=== PATIENT | male | born 1960 | race Caucasian/White ===

== ENCOUNTER 2016-10-05 07:44 | Emergency (ER) | payer MEDICARE ==
[2016-10-05 07:58] VITALS: RESP 16; TEMP 98.2
--- NOTE | 2016-10-05 08:18 | ED PDOC ---
Arrival/HPI - General Historian: Patient - History of Present Illness Time/Duration: 4-6 hours Symptom Onset: Sudden Symptom Course: Unchanged Quality: Throbbing Severity Level: 8 Activities at Onset: Rest Context: Sitting - General Time Seen by Provider: 10/05/16 07:55 - History of Present Illness Narrative History of Present Illness (Text): 10/05/16 08:14 This is a 56 yr. old male with a past medical history of arthritis who comes to [facility] complaining of left shoulder pain since 5:30 a.m. this morning. The patient reports being asleep when his arm begin hurting so badly that it woke him from his sleep. He reports the pain starting at the AC joint and moving down to the left elbow. The patient denies any alleviating or modifying factors. The patient does report some nausea that started around the same time as the arm pain. The patient denies any fevers, chills, vomiting, shortness of breath, headache, weakness, or any other complaints. (Jonathan Nettles) Past Medical History - Provider Review Nursing Documentation Reviewed: Yes - Travel History Have you recently traveled outside [place] w/in the past 3 mons?: No - Cardiac Hx Cardiac Disorders: No - Pulmonary Hx Respiratory Disorders: No - Neurological Hx Neurological Disorder: No - HEENT Hx HEENT Disorder: No - Renal Hx Renal Disorder: No - Endocrine/Metabolic Hx Endocrine Disorders: No - Hematological/Oncological Hx Blood Disorders: No - Integumentary Hx Dermatological Disorder: No - Musculoskeletal/Rheumatological Hx Musculoskeletal Disorders: Yes Hx Rheumatoid Arthritis: Yes - Gastrointestinal Hx Gastrointestinal Disorders: No - Genitourinary/Gynecological Hx Genitourinary Disorders: No - Psychiatric Hx Psychophysiologic Disorder: No Hx Substance Use: No Family/Social History - Physician Review Nursing Documentation Reviewed: Yes Family/Social History: No Known Family HX Smoking Status: Never Smoked Hx Alcohol Use: Yes Frequency of alcohol use: Socially Hx Substance Use: No Allergies/Home Meds Allergies/Adverse Reactions: Allergies No Known Allergies Allergy (Verified 10/05/16 07:57) Home Medications: Home Meds Medication Instructions Recorded Confirmed Unobtainable 10/05/16 10/05/16 Review of Systems - Physician Review All systems were reviewed & negative as marked: Yes - Review of Systems Constitutional: Normal. absent: Fatigue, Fevers, Night Sweats Eyes: Normal. absent: Vision Changes, Eye Pain ENT: Normal. absent: TMJ Pain, Rhinorrhea, Sinus Congestion Respiratory: Normal. absent: SOB, Sputum, Wheezing Cardiovascular: Normal. absent: Chest Pain, Calf Pain Gastrointestinal: Nausea. absent: Normal, Abdominal Pain, Constipation, Diarrhea, Vomiting Genitourinary Male: Normal. absent: Frequency, Hematuria Musculoskeletal: Normal. absent: Back Pain Skin: Normal. absent: Skin Lesions, Abscess Neurological: Normal, Headache. absent: Dizziness Endocrine: Normal. absent: Polyuria, Polydipsia Psychiatric: Normal Physical Exam Vital Signs Reviewed: Yes Temperature: Afebrile Blood Pressure: Normal Pulse: Regular Respiratory Rate: Normal Appearance: Positive for: Well-Appearing, Non-Toxic, Comfortable Pain Distress: None Mental Status: Positive for: Alert and Oriented X 3 - Systems Exam Head: Present: Atraumatic, Normocephalic Pupils: Present: PERRL. No: Sluggish Extroacular Muscles: Present: EOMI. No: Entrapment Conjunctiva: Present: Normal. No: Injected Mouth: Present: Moist Mucous Membranes, Normal Tounge. No: Drooling Neck: Present: Normal Range of Motion. No: JVD, Lymphadenopathy Respiratory/Chest: Present: Clear to Auscultation, Good Air Exchange. No: Respiratory Distress, Accessory Muscle Use Cardiovascular: Present: Regular Rate and Rhythm, Normal S1, S2. No: Murmurs, Tachycardic, Bradycardic Abdomen: Present: Normal Bowel Sounds. No: Tenderness, Distention, Rebound, Guarding Upper Extremity: Present: Other. No: Normal Inspection (Reduced flexion, abduction and extension noted in left arm.), Cyanosis, Edema Lower Extremity: Present: Normal Inspection. No: Edema Neurological: Present: CN II-XII Intact, Speech Normal Skin: Present: Dry, Normal Color. No: Warm, Rashes Psychiatric: Present: Alert, Oriented x 3, Normal Insight Vital Signs Temp Pulse Resp BP Pulse Ox 10/05/16 07:57 98.2 F 78 16 128/69 96 Medical Decision Making - Lab Interpretations I have reviewed the lab results: Yes - RAD Interpretation Legal Officer: Radiologist - EKG Interpretation Interpreted by ED Physician: Yes Type: 12 lead EKG ED Course and Treatment: 10/05/16 08:42 Patient seen and examined with resident. Came up with treatment and disposition plan with resident. (Ameya Pelletier) 10/05/16 08:22 This is a 56 yr. old male with a past medical history of arthritis who comes to [facility] complaining of left arm pain that began this morning around 5:30 a.m. I ordered an X-ray of the left shoulder. The patient was given Zofran for the nausea. The patient will be re-evaluated once lab results return 10/05/16 08:31 10/05/16 09:53 Patient reports pain subsiding in his left arm after the Toradol injection. Patient also reports nausea subsiding after the Zofran was given. 10/05/16 11:55 Patient to be discharged. Instructed patient to follow up with a [facility] and Orthopedist within one week. Patient states he understands instructions and plans on contacting respective physicians today. (Jonathan Nettles) - Lab Interpretations Lab Results: 10/05/16 10:03 10/05/16 09:34 Lab Results 10/05/16 10:03: WBC 8.5, RBC 4.39, Hgb 13.2 L, Hct 37.9 L, MCV 86.3, MCH 30.1, MCHC 34.8, RDW 12.4, Plt Count 214, MPV 9.2, Gran % 69.3 H, Lymph % (Auto) 22.1 , [place] % (Auto) 5.2, Eos % (Auto) 2.8, Baso % (Auto) 0.6, Gran # 5.89, Lymph # 1.9, [place] # 0.4, Eos # 0.2, Baso # 0.05 10/05/16 09:34: Sodium 139, Potassium 3.9, Chloride 104, Carbon Dioxide 26, Anion Gap 13, BUN 16, Creatinine 0.6, Est GFR ( Amer) > 60, Est GFR (Non- Af Amer) > 60, Random Glucose 91, Calcium 8.6, Total Bilirubin 0.6, AST 28, ALT 40, Alkaline Phosphatase 65, Total Protein 7.5, Albumin 4.0, Globulin 3.5, Albumin/Globulin Ratio 1.1 10/05/16 09:00: Lactate Dehydrogenase 360, Total Creatine Kinase 77, Troponin I < 0.01 - RAD Interpretation Radiology Orders: 10/05/16 08:26 SHOULDER LEFT [RAD] Stat - Medication Orders Current Medication Orders: Discontinued Medications Ketorolac Tromethamine (Toradol) 60 mg IM STAT STA Stop: 10/05/16 09:28 Last Admin: 10/05/16 09:33 Dose: Ketorolac Tromethamine (Toradol) Confirm Administered Dose 60 mg .ROUTE .STK- MED ONE Stop: 10/05/16 09:32 Last Admin: 10/05/16 09:33 Dose: 60 mg Ondansetron HCl (Zofran Tab) 4 mg PO STAT STA Stop: 10/05/16 08:27 Last Admin: 10/05/16 08:47 Dose: 4 mg Disposition/Present on Arrival - Present on Arrival Any Indicators Present on Arrival: No History of DVT/PE: No History of Uncontrolled Diabetes: No Urinary Catheter: No History of Decub. Ulcer: No History Surgical Site Infection Following: None - Disposition Have Diagnosis and Disposition been Completed?: Yes Disposition Time: 11:42 Patient Plan: Discharge - Disposition Diagnosis: Shoulder pain Disposition: HOME/ ROUTINE Patient Problems: Current Active Problems Problem Status Onset Shoulder pain Acute Condition: GOOD Additional Instructions: Patient instructed to f/u with PMD within one week. Patient given referrals for Orthopedics and Cardiology. Patient instructed to f/u with Orthopedics within one week. Patient instructed to f/u with Cardiology within one week. Patient should return to [facility] for any new symptoms or current symptoms worsen. Referrals: Jesus Lebron MD [Staff Provider] - Follow up with primary Winston Montes MD [Staff Provider] - Follow up with primary
[2016-10-05 09:37] LABS: TROPONIN I < 0.01 ng/mL
[2016-10-05 10:31] LABS: ALB/GLOB RATIO 1.1 (1.1-1.8); ALKALINE PHOSPHATASE 65 U/L (38-133); ALT/SGPT 40 U/L (7-56); AST/SGOT 28 U/L (15-59); BILIRUBIN,TOTAL 0.6 mg/dL (0.2-1.3); BLOOD UREA NITROGEN 16 mg/dL (7-21); CALCIUM 8.6 mg/dL (8.4-10.5); CARBON DIOXIDE 26 mmol/L (21-33); CHLORIDE 104 mmol/L (98-107); GFR AFRICAN-AMERICAN > 60; GLUCOSE,RANDOM 91 mg/dL (70-110); POTASSIUM 3.9 mmol/L (3.6-5.0); SODIUM 139 mmol/L (132-148); TOTAL PROTEIN 7.5 g/dL (5.8-8.3)
[2016-10-05 10:41] LABS: BASO # 0.05 K/mm3 (0.0-2.0); BASO % 0.6 % (0.0-3.0); EOS # 0.2 (0.0-0.7); EOS % 2.8 % (1.5-5.0); GRAN # 5.89 (1.4-6.5); GRAN % 69.3 % (50.0-68.0); HEMATOCRIT 37.9 % (42.0-52.0); LYMPH # 1.9 (1.2-3.4); LYMPH % 22.1 % (22.0-35.0); MEAN CELL VOLUME 86.3 fl (80.0-105.0); MEAN CORPUSCULAR HEMOGLOBIN 30.1 pg (25.0-35.0); MEAN CORPUSCULAR HGB CONC 34.8 g/dl (31.0-37.0); MEAN PLATELET VOLUME 9.2 fl (7.0-11.0); MONO # 0.4 (0.1-0.6); MONO % 5.2 % (1.0-6.0); RED CELL DISTRIBUTION WIDTH 12.4 % (11.5-14.5); WHITE BLOOD COUNT 8.5 10^3/ul (4.5-11.0)
--- NOTE | 2016-10-05 11:08 | RAD ---
PROCEDURE: Radiographs of the Left Shoulder HISTORY: shoulder pain COMPARISON: No prior. FINDINGS: BONES: No fracture or lytic lesion JOINTS: Glenohumeral and acromioclavicular moderate osteoarthritis. SOFT TISSUES: Normal. OTHER FINDINGS: None. IMPRESSION: Left shoulder moderate arthrosis
[2016-10-05 12:32] VITALS: BP 130/54; PULSE 75; O2SAT 98
--- NOTE | 2016-10-05 17:10 | CARD ---
APPROVED REPORT EKG Measurement Heart [id number] <Conclusion> Normal sinus rhythm Incomplete right bundle branch block Moderate voltage criteria for LVH, may be normal variant Borderline ECG
== END 2016-10-05 12:05 | disposition home or self-care (01) ==
LOC: MERGE 07:44 → ED 07:44
DX: M25.512 Pain in left shoulder (principal)
CPT/HCPCS: 73030; 80053; 82550; 83615; 84484; 85025; 93005; 99284; J1885

== ENCOUNTER 2018-05-14 18:06 | Emergency (ER) | payer MEDICARE, MEDICAID ==
[2018-05-14 18:06] VITALS: BMI 26.4
--- NOTE | 2018-05-14 18:37 | ED PDOC ---
Arrival/HPI - General Chief Complaint: Abdominal Pain Time Seen by Provider: 05/14/18 18:21 - History of Present Illness Narrative History of Present Illness (Text): 58 yr old male w/ hx of RA p/w chest pain and epigatric pain. Pt notes epigastric pain started yesterday, after drinking alcohol. No fall or trauma. He notes pain feels like a stabbing to his abdomen, without radiation. Pt notes he did not take any medications for the abdominal pain. He notes that he has had this abdominal pain before after drinking alcohol. He also notes chest pain that started at 2am. Sharp stabbing, right sided, reproducible on palpation, without radiation, first time occurence. He denies any sob. No fever, chills or night sweats. No abdominal pain. No constipation or diarrhea. No dark or bloody stool. No body aches. No other complaints. Past Medical History - Infectious Disease Hx of Infectious Diseases: None - Cardiac Hx Cardiac Disorders: No - Pulmonary Hx Respiratory Disorders: No - Neurological Hx Neurological Disorder: No - HEENT Hx HEENT Disorder: No - Renal Hx Renal Disorder: No - Endocrine/Metabolic Hx Endocrine Disorders: No - Hematological/Oncological Hx Blood Disorders: No - Integumentary Hx Dermatological Disorder: No - Musculoskeletal/Rheumatological Hx Musculoskeletal Disorders: Yes Hx Arthritis: Yes Hx Rheumatoid Arthritis: Yes - Gastrointestinal Hx Gastrointestinal Disorders: No - Genitourinary/Gynecological Hx Genitourinary Disorders: No - Psychiatric Hx Psychophysiologic Disorder: No Hx Substance Use: No - Anesthesia Hx Anesthesia: No Family/Social History Family/Social History: Unknown Family HX Smoking Status: Never Smoked Hx Alcohol Use: Yes Hx Substance Use: No Allergies/Home Meds Allergies/Adverse Reactions: Allergies No Known Allergies Allergy (Verified 10/31/14 00:47) Review of Systems - Review of Systems Constitutional: absent: Fatigue, Weight Change, Fevers, Night Sweats Eyes: absent: Vision Changes, Photophobia, Eye Pain ENT: absent: Hearing Changes, Tinnitus Respiratory: absent: SOB, Cough, Sputum, Wheezing Cardiovascular: Chest Pain. absent: Palpitations, Edema Gastrointestinal: Abdominal Pain. absent: Stool Changes, Constipation, Diarrhea, Nausea, Vomiting, Appetite Changes, Hematochezia, Hematemesis, Anorexia, Food Intolerance Genitourinary Male: absent: Dysuria, Frequency, Hematuria Musculoskeletal: absent: Arthralgias, Back Pain, Neck Pain Skin: absent: Rash, Pruritis, Skin Lesions, Laceration Neurological: absent: Headache, Dizziness, Focal Weakness Endocrine: absent: Diaphoresis, Polyuria Hemo/Lymphatic: absent: Adenopathy, Easy Bleeding Psychiatric: absent: Anxiety, Depression Physical Exam Vital Signs Temp Pulse Resp BP Pulse Ox 05/14/18 18:18 98.2 F 70 18 139/88 98 Temperature: Afebrile Blood Pressure: Normal Pulse: Regular Respiratory Rate: Normal Appearance: Positive for: Well-Appearing Pain Distress: None Mental Status: Positive for: Alert and Oriented X 3 - Systems Exam Head: Present: Atraumatic Pupils: Present: PERRL Extroacular Muscles: Present: EOMI Conjunctiva: Present: Normal Ears: Present: Normal Mouth: Present: Moist Mucous Membranes Pharnyx: Present: Normal. No: ERYTHEMA, EXUDATE Nose (Internal): Present: Normal Inspection, No Active Bleeding Neck: Present: Normal Range of Motion. No: Meningeal Signs, MIDLINE TENDERNESS Respiratory/Chest: Present: Clear to Auscultation, Good Air Exchange, Tender to Palpation (R chest wall). No: Wheezes, Rhonchi Cardiovascular: Present: Regular Rate and Rhythm, Normal S1, S2. No: Murmurs, Gallop Abdomen: Present: Tenderness (epigastric), Normal Bowel Sounds. No: Distention, Peritoneal Signs, Rebound, Guarding, McBurney's Point Tender, Rovsing's Sign Present Back: Present: Normal Inspection. No: CVA Tenderness, Midline Tenderness Upper Extremity: Present: Normal Inspection, Normal ROM, NORMAL PULSES Lower Extremity: Present: Normal Inspection, NORMAL PULSES Neurological: Present: GCS=15, CN II-XII Intact, Speech Normal Skin: Present: Warm, Dry Psychiatric: Present: Alert, Oriented x 3 Medical Decision Making ED Course and Treatment: 58 yr old male w/ hx of RA p/w chest pain reproducible on palpation with low heart score pending trop and epigastric pain after drinking alcohol. Likely chest wall pain and gastritis. Pending imaging and labs EK, nsr, no stemi, rbbb Heart: age: 1 RF: 0 Story: 0 EK trop: pending 05/14/18 20:14 labs unremarkable: low risk CP w/ Heart score to f2 CXR unremarkable pain mcuh improved abd non-ttp clear for d/c home w/ return indications and f/u pt agreeable to plan, to follow up with PMD, GI and Cards - RAD Interpretation Radiology Orders: 05/14/18 18:33 CHEST TWO VIEWS (PA/LAT) [RAD] Stat Disposition/Present on Arrival - Present on Arrival Any Indicators Present on Arrival: Yes History of DVT/PE: No History of Uncontrolled Diabetes: No Urinary Catheter: No History of Decub. Ulcer: No History Surgical Site Infection Following: None - Disposition Have Diagnosis and Disposition been Completed?: Yes Diagnosis: Chest pain, Alcoholic gastritis Disposition: HOME/ ROUTINE Disposition Time: 20:12 Patient Problems: Current Active Problems Problem Status Onset Alcoholic gastritis Acute Chest pain Acute Condition: STABLE Discharge Instructions (ExitCare): Gastritis, Alcohol Use - When Is Drinking a Problem?, Chest Pain (DC) Additional Instructions: ZAY VALENTIN, thank you for letting us take care of you today. Your provider was Alec Jasso and you were treated for CHEST PAIN. The emergency medical care you received today was directed at your acute symptoms. If you were prescribed any medication, please fill it and take as directed. It may take several days for your symptoms to resolve. Return to the Emergency Department if your symptoms worsen, do not improve, or if you have any other problems. Please contact your doctor or call one of the physicians/clinics you have been referred to that are listed on the Patient Visit Information form that is included in your discharge packet. Bring any paperwork you were given at discharge with you along with any medications you are taking to your follow up visit. Our treatment cannot replace ongoing medical care by a primary care provider outside of the emergency department. Thank you for allowing the [facility] team to be part of your care today. If you had an X-Ray or CT scan: A Radiologist will review the ED reading if any change in treatment is needed we will contact you. If you had a blood, urine, or wound culture: It will take several days for the results, if any change in treatment is needed we will contact you. If you had an STI test: It will take 48 hours for the results. Please call after 1 week if you have not heard back. Prescriptions: Famotidine [Pepcid] 20 mg PO Q24H PRN 6 Days #6 tab PRN Reason: Dyspepsia Referrals: [facility] [Outside] - Follow up with primary [facility] [Outside] - Follow up with primary [facility] [Outside] - Follow up with primary Rodolfo Maldonado MD [Primary Care Provider] - Follow up with primary Jesus Lebron MD [Staff Provider] - Follow up with primary Autumn Love MD [Staff Provider] - Follow up with primary Forms: [employer] (Hungarian)
[2018-05-14 18:58] LABS: BASO # 0.05 K/mm3 (0.0-2.0); BASO % 0.7 % (0.0-3.0); EOS # 0.3 (0.0-0.7); EOS % 4.1 % (1.5-5.0); HEMOGLOBIN 14.1 g/dL (14.0-18.0); LYMPH # 2.4 (1.2-3.4); LYMPH % 34.7 % (22.0-35.0); MEAN CELL VOLUME 88.7 fl (80.0-105.0); MEAN CORPUSCULAR HEMOGLOBIN 30.2 pg (25.0-35.0); MEAN CORPUSCULAR HGB CONC 34.1 g/dl (31.0-37.0); MEAN PLATELET VOLUME 9.7 fl (7.0-11.0); MONO # 0.3 (0.1-0.6); MONO % 4.9 % (1.0-6.0); RBC 4.67 10^6/uL (3.5-6.1); RED CELL DISTRIBUTION WIDTH 12.2 % (11.5-14.5); VENOUS BLOOD GAS BASE EXCESS 5.3 mmol/L (0.0-2.0); VENOUS BLOOD GAS PO2 84 mm/Hg (30-55); VENOUS BLOOD PH 7.41 (7.32-7.43); WHITE BLOOD COUNT 6.9 10^3/uL (4.5-11.0)
[2018-05-14 19:07] LABS: ALT/SGPT 50 U/L (7-56); AST/SGOT 36 U/L (17-59); BLOOD UREA NITROGEN 23 mg/dL (7-21); CALCIUM 9.2 mg/dL (8.4-10.5); GFR NON-AFRICAN AMERICAN > 60; LIPASE 192 U/L (23-300)
[2018-05-14 19:18] LABS: TROPONIN I < 0.01 ng/mL
[2018-05-14 20:59] VITALS: TEMP 98.7
[2018-05-14 21:01] VITALS: BP 122/71; PULSE 78; RESP 14; O2SAT 100
--- NOTE | 2018-05-15 09:45 | RAD ---
Date of service: 05/14/2018 HISTORY: cp COMPARISON: 03/14/2016 TECHNIQUE: Chest PA and lateral views FINDINGS: LUNGS: No active pulmonary disease. PLEURA: No significant pleural effusion identified. No pneumothorax apparent. CARDIOVASCULAR: No aortic atherosclerotic calcification present. Normal cardiac size. No pulmonary vascular congestion. OSSEOUS STRUCTURES: No significant abnormalities. VISUALIZED UPPER ABDOMEN: Normal. OTHER FINDINGS: None. IMPRESSION: No active disease.
--- NOTE | 2018-05-15 11:49 | CARD ---
APPROVED REPORT Date of service: 05/14/2018 EKG Measurement Heart [id number] <Conclusion> Normal sinus rhythm Incomplete right bundle branch block Minimal voltage criteria for LVH, may be normal variant Borderline ECG
== END 2018-05-14 20:25 | disposition home or self-care (01) ==
LOC: ED 18:06
DX: R07.9 Chest pain, unspecified (principal); K29.20 Alcoholic gastritis without bleeding